=== PATIENT | female | born 1965 | race African-American/Black ===

== ENCOUNTER 2017-01-28 12:46 | Emergency (ER) | payer SELFPAY ==
[~2017-01-28] VITALS: Ht 177.8 cm; Wt 110.3 kg
[~2017-01-28 12:46] MED LIST: LISI40TA PO
[2017-01-28 12:49] VITALS: BP 165/96
== END 2017-01-28 14:00 | disposition home or self-care (01) ==
LOC: ED 13:40
DX: K02.9 Dental caries, unspecified (principal); Z76.0 Encounter for issue of repeat prescription; I10 Essential (primary) hypertension
CPT/HCPCS: 99283

== ENCOUNTER 2018-07-19 09:13 | Emergency (ER) | payer OTHER ==
[~2018-07-19] VITALS: Ht 180.3 cm; Wt 111.0 kg
--- NOTE | 2018-07-19 09:43 | NUR ---
patient ambulated to room safely, has walked to and from bathroom to provide UA.
--- NOTE | 2018-07-19 09:48 | NUR ---
md Barreto at bedside for assessment, patient safe in [facility], call light in reach, UA sent to lab, blood draw by lab in progress
[2018-07-19 10:25] LABS: BASOPHILS # (AUTO) 0.03 x10^3/uL (0-0.1); BASOPHILS % (AUTO) 0 % (0-1); EOSINOPHILS # (AUTO) 0.09 x10^3/uL (0-0.4); EOSINOPHILS % (AUTO) 1 % (1-7); LYMPHOCYTES # (AUTO) 3.12 x10^3/uL (1-3.4); LYMPHOCYTES % (AUTO) 46 % (22-44); MD NO; MEAN CORPUSCULAR HEMOGLOBIN 29.3 pg (27.0-34.8); MEAN CORPUSCULAR VOLUME 88.7 fL (80-100); MEAN PLATELET VOLUME 8.4 fL (7.4-10.4); MONOCYTES % (AUTO) 7 % (2-9); NEUTROPHILS # (AUTO) 3.13 x10^3/uL (1.8-6.8); NEUTROPHILS % (AUTO) 46 % (42-75); PLATELET COUNT 248 x10^3/uL (130-400); RED BLOOD COUNT 4.78 x10^6/uL (3.82-5.3); RED CELL DISTRIBUTION WIDTH 14.8 % (9.6-15.2)
[2018-07-19 10:33] LABS: ALBUMIN 3.9 g/dL (3.4-5.0); ANION GAP 8 mmol/L (5-15); CALCIUM 8.9 mg/dL (8.5-10.1); CHLORIDE 105 mmol/L (98-107)
[2018-07-19 10:37] LABS: ALANINE AMINOTRANSFERASE 83 U/L (12-78); ALKALINE PHOSPHATASE 84 U/L (45-117); BILIRUBIN,TOTAL 0.3 mg/dL (0.2-1.0); CREATININE 0.81 mg/dL (0.55-1.02); TOTAL PROTEIN 7.6 g/dL (6.4-8.2)
[2018-07-19] MEDS ORDERED: LISINOPRIL 20 MG TABLET ONE (10:51)
[2018-07-19 10:56] VITALS: BP 187/108
--- NOTE | 2018-07-19 10:58 | NUR ---
patient prepared for discharge, medicated per SEP, no pain, all questions answered, ambulatory to discharge desk now.
[2018-07-19] MEDS ORDERED: LISINOPRIL 20 MG TABLET PO ONE (11:00)
== END 2018-07-19 10:59 | disposition home or self-care (01) ==
LOC: ED 10:53
DX: I10 Essential (primary) hypertension (principal); E11.65 Type 2 diabetes mellitus with hyperglycemia; F17.200 Nicotine dependence, unspecified, uncomplicated
CPT/HCPCS: 80053; 82962; 85025; 99283

== ENCOUNTER 2019-11-24 21:32 | Inpatient (IN) | payer OTHER ==
[~2019-11-24] VITALS: Ht 177.8 cm; Wt 101.6 kg
[~2019-11-24 21:32] MED LIST changes: +ACET650S21 PO; +DOCU-131 PO; +FERR325T18 PO; +GLIP10TA13 PO; +IBUP-1222 PO; +METF500T17 PO; +NICO-485 TD; +OXYC5CAP2 PO
[2019-11-24] MEDS ORDERED: MORPHINE SULFATE 4 MG/ML, 1ML ONE ×2 (21:39→23:04)
[2019-11-24] MEDS: MORPHINE SULFATE 4 MG/ML, 1ML IVPush PRN ×2 (21:54→23:09)
[2019-11-24 21:58] LABS: MEAN CORPUSCULAR HEMOGLOBIN 27.8 pg (27.0-34.8); MEAN CORPUSCULAR HGB CONC 32.4 g/dL (32.4-35.8); MEAN CORPUSCULAR VOLUME 85.7 fL (80-100); MEAN PLATELET VOLUME 7.4 fL (7.4-10.4); PLATELET COUNT 496 x10^3/uL (130-400); RED BLOOD COUNT 3.66 x10^6/uL (3.82-5.3); RED CELL DISTRIBUTION WIDTH 15.4 % (9.6-15.2)
[2019-11-24] MEDS ORDERED: SODIUM CHLORIDE 0.9% 1,000ML IVBOLUS ONE ×2 (22:00→23:00)
[2019-11-24] MEDS ORDERED: ONDANSETRON 2MG/ML, 2ML IVPush ONE (22:00)
[2019-11-24 22:10] LABS: ALANINE AMINOTRANSFERASE 68 U/L (12-78); ALBUMIN 2.4 g/dL (3.4-5.0); ANION GAP 13 mmol/L (5-15); CALCIUM 8.8 mg/dL (8.5-10.1); CHLORIDE 92 mmol/L (98-107); CREATININE 1.33 mg/dL (0.55-1.02)
[2019-11-24 22:12] LABS: ALKALINE PHOSPHATASE 129 U/L (45-117); TOTAL PROTEIN 7.8 g/dL (6.4-8.2)
--- NOTE | 2019-11-24 22:17 | NUR ---
THIS IS A 54Y F BIB EMS FROM HOME AFTER SUDDEN ONSET OF SEVERE ABD PAIN AND VB FOLLOWING A HYSTERECTOMY 11/15/19. PT STS SHE HAS BEEN HAVING DIFFICULTY MANAGING HER PAIN RECENTLY. UPON ARRIVAL TO ER PT BLEEDING FROM SURGICAL INCISION IN LOWER ABD AND VAGINA WITH FOUL ODOR. PT CONNECTED TO MONITORING ERP AT BEDSIDE FOR ASSESSMENT
--- NOTE | 2019-11-24 22:17 | NUR ---
PT TO CT
--- NOTE | 2019-11-24 22:18 | NUR ---
PT CLEANED AND LINENS CHANGED. PT TOLERATED WELL
--- NOTE | 2019-11-24 22:31 | NUR ---
PT BACK TO ROOM FROM CT
[2019-11-24 22:40] LABS: BASOPHILS # (AUTO) 0.04 x10^3/uL (0-0.1); BASOPHILS % (AUTO) 0 % (0-1); EOSINOPHILS # (AUTO) 0.06 x10^3/uL (0-0.4); EOSINOPHILS % (AUTO) 0 % (1-7); LYMPHOCYTES # (AUTO) 0.81 x10^3/uL (1-3.4); LYMPHOCYTES % (AUTO) 5 % (22-44); MD SCAN; MONOCYTES # (AUTO) 0.82 x10^3/uL (0.2-0.8); MONOCYTES % (AUTO) 5 % (2-9); NEUTROPHILS # (AUTO) 15.77 x10^3/uL (1.8-6.8); NEUTROPHILS % (AUTO) 90 % (42-75)
[2019-11-24] MEDS ORDERED: POTASSIUM CHLORIDE 40 MEQ in SODIUM CHLORIDE 0.9% 500 ML IV ONE (23:00)
--- NOTE | 2019-11-24 23:09 | NUR ---
PT REQ PAIN MEDICATION, PT MEDICATED PER MAR PT STS SHE DOESN'T WANT THE ZOFRAN SHE DOES NOT FEEL SICK TO HER STOMACH AND WILL LET RN KNOW IF SHE CHANGES HER MIND
--- NOTE | 2019-11-24 23:21 | NUR ---
IDA DEL REAL SENT TO PHARMACY, LAB AT [facility] FOR CULTURES. FLUIDS INFUSING WITHOUT DIFFICULTY.
[2019-11-24] MEDS ORDERED: ERTAPENEM 1 GM in SODIUM CHLORIDE 0.9% 50 ML IV ONE (23:30)
[2019-11-24] MEDS ORDERED: OMNIPAQUE 350 MG/ML, 150 ML BOTTLE ONE (23:33)
--- NOTE | 2019-11-24 23:40 | NUR ---
IV ABX STARTED CULTURES DRAWN PRIOR TO START
--- NOTE | 2019-11-24 23:44 | NUR ---
REPORT TO RENETTA BREWER, PT READY FOR TRANSFER TO FLOOR [id number]
[2019-11-25] MEDS ORDERED: IBUPROFEN 200 MG TABLET PO PRN (01:30)
[2019-11-25 01:59] VITALS: BP 103/65
[2019-11-25 02:00] VITALS: BP 119/65
[2019-11-25] MEDS ORDERED: ACETAMINOPHEN 325 MG TABLET PO PRN (02:00)
[2019-11-25] MEDS: CEFAZOLIN PMX 2GM/50ML 50 ML IVPB SCH ×4 (03:51→22:43)
[2019-11-25 06:03] LABS: MEAN CORPUSCULAR HGB CONC 32.7 g/dL (32.4-35.8); MEAN CORPUSCULAR VOLUME 85.5 fL (80-100); MEAN PLATELET VOLUME 7.7 fL (7.4-10.4); PLATELET COUNT 494 x10^3/uL (130-400); RED BLOOD COUNT 3.57 x10^6/uL (3.82-5.3); RED CELL DISTRIBUTION WIDTH 15.1 % (9.6-15.2)
[2019-11-25 06:13] LABS: CHLORIDE 101 mmol/L (98-107)
[2019-11-25 06:18] LABS: ALANINE AMINOTRANSFERASE 59 U/L (12-78); ALBUMIN 2.3 g/dL (3.4-5.0); ALKALINE PHOSPHATASE 123 U/L (45-117); ANION GAP 9 mmol/L (5-15); BILIRUBIN,TOTAL 0.7 mg/dL (0.2-1.0); CALCIUM 8.8 mg/dL (8.5-10.1); CREATININE 0.86 mg/dL (0.55-1.02)
[2019-11-25 06:43] LABS: MD YES
[2019-11-25 06:47] LABS: BAND#(MANUAL) 2.53 x10^3/uL; BANDS%(MANUAL) 16 % (0-7); LYMPH#(MANUAL) 2.69 x10^3/uL (1-3.4); LYMPHS% (MANUAL) 17 % (22-44); MONOS#(MANUAL) 0.95 x10^3/uL (0.3-2.7); MONOS% (MANUAL) 6 % (2-9); SEG#(MANUAL) 9.64 x10^3/uL (1.8-6.8); SEGS% (MANUAL) 61 % (42-75)
[2019-11-25 06:48] LABS: <PLATELET ESTIMATE> INCREASED; <PLT MORPHOLOGY> NORMAL PLT MORPH; ANISOCYTOSIS 1+; POLYCHROMASIA 1+
[2019-11-25 08:18] VITALS: BP 119/72
[2019-11-25] MEDS: FERROUS SULFATE 325 MG TABLET PO SCH ×2 (08:28→20:45)
[2019-11-25] MEDS: LISINOPRIL 40 MG TABLET PO SCH (08:28)
[2019-11-25] MEDS: DOCUSATE 100 MG CAPSULE PO SCH ×2 (08:28→20:45)
[2019-11-25] MEDS: INSULIN LISPRO 100 UNITS/ML, PEN SQ-INSULIN SCH ×4 (08:49→20:51)
[2019-11-25] MEDS ORDERED: metFORMIN 500 MG TABLET PO SCH (09:00)
[2019-11-25 15:00] VITALS: BP 116/82
[2019-11-25] MEDS: OXYcodone IR 5MG TABLET PO PRN ×2 (16:10→20:50)
[2019-11-25 19:27] VITALS: BP 122/66
[2019-11-26] MEDS: OXYcodone IR 5MG TABLET PO PRN ×4 (00:55→20:34)
[2019-11-26 03:16] VITALS: BP 119/74
[2019-11-26] MEDS: CEFAZOLIN PMX 2GM/50ML 50 ML IVPB SCH ×2 (04:22→09:07)
[2019-11-26 05:07] LABS: MEAN CORPUSCULAR HEMOGLOBIN 28.1 pg (27.0-34.8); MEAN CORPUSCULAR HGB CONC 32.6 g/dL (32.4-35.8); MEAN CORPUSCULAR VOLUME 86.3 fL (80-100); MEAN PLATELET VOLUME 7.4 fL (7.4-10.4); PLATELET COUNT 508 x10^3/uL (130-400); RED BLOOD COUNT 3.39 x10^6/uL (3.82-5.3); RED CELL DISTRIBUTION WIDTH 15.2 % (9.6-15.2)
[2019-11-26 05:09] LABS: ALBUMIN 2.1 g/dL (3.4-5.0); ANION GAP 9 mmol/L (5-15); CALCIUM 9.1 mg/dL (8.5-10.1); CHLORIDE 96 mmol/L (98-107)
[2019-11-26 05:14] LABS: ALANINE AMINOTRANSFERASE 53 U/L (12-78); ALKALINE PHOSPHATASE 113 U/L (45-117); BILIRUBIN,TOTAL 0.7 mg/dL (0.2-1.0); TOTAL PROTEIN 7.7 g/dL (6.4-8.2)
[2019-11-26 05:52] LABS: MD YES
[2019-11-26 05:54] LABS: ANISOCYTOSIS 1+; BAND#(MANUAL) 0.44 x10^3/uL; BANDS%(MANUAL) 4 % (0-7); LYMPH#(MANUAL) 1.89 x10^3/uL (1-3.4); LYMPHS% (MANUAL) 17 % (22-44); MONOS#(MANUAL) 0.67 x10^3/uL (0.3-2.7); MONOS% (MANUAL) 6 % (2-9); SEGS% (MANUAL) 73 % (42-75)
[2019-11-26 05:55] LABS: <PLATELET ESTIMATE> INCREASED; <PLT MORPHOLOGY> NORMAL PLT MORPH; POLYCHROMASIA 1+
[2019-11-26 06:43] VITALS: BP 110/74
[2019-11-26] MEDS: INSULIN LISPRO 100 UNITS/ML, PEN SQ-INSULIN SCH ×4 (07:00→20:36)
[2019-11-26] MEDS: DOCUSATE 100 MG CAPSULE PO SCH ×2 (08:54→20:34)
[2019-11-26] MEDS: FERROUS SULFATE 325 MG TABLET PO SCH ×2 (08:55→20:34)
[2019-11-26] MEDS: LISINOPRIL 40 MG TABLET PO SCH (09:07)
[2019-11-26] MEDS ORDERED: CHLORHEXIDINE 15 ML UDC MM STA (11:06)
[2019-11-26] MEDS ORDERED: PROMETHAZINE 25 MG/ML, 1ML IVPush PRN (11:30)
[2019-11-26] MEDS ORDERED: FENTANYL PF 250 MCG/5ML ONE ×2 (12:02→12:13)
[2019-11-26] MEDS ORDERED: PROPOFOL 10 MG/ML, 20ML ONE ×4 (12:02→13:06)
[2019-11-26] MEDS ORDERED: CEFAZOLIN 1,000 MG ONE ×3 (12:02→12:12)
[2019-11-26] MEDS ORDERED: SUCCINYLCHOLINE 20 MG/ML, 10ML ONE (13:06)
[2019-11-26] MEDS ORDERED: ONDANSETRON 2MG/ML, 2ML ONE ×2 (13:06→13:13)
[2019-11-26] MEDS ORDERED: ROCURONIUM 10MG/ML,5ML ONE (13:08)
[2019-11-26] MEDS ORDERED: SUGAMMADEX 200 MG/2 ML IVPush ONE (13:13)
[2019-11-26] MEDS ORDERED: FENTANYL PF 100 MCG/2ML ONE ×2 (13:52→14:26)
[2019-11-26] MEDS: FENTANYL PF 100 MCG/2ML IV PRN ×4 (13:56→14:39)
[2019-11-26] MEDS ORDERED: KETOROLAC 30 MG/1 ML ONE (14:05)
[2019-11-26] MEDS ORDERED: OXYcodone 5 MG/5 ML ORAL.SOL UDC ONE ×2 (14:14→15:47)
[2019-11-26] MEDS: OXYcodone 5 MG/5 ML ORAL.SOL UDC PO PRN ×2 (14:15→15:57)
[2019-11-26] MEDS ORDERED: KETOROLAC 30 MG/1 ML IVPush PRN (14:30)
[2019-11-26] MEDS ORDERED: HYDROmorphone 1 MG/ML, 1ML INJ ONE (15:47)
[2019-11-26] MEDS: HYDROmorphone 1 MG/ML, 1ML INJ IVPush PRN ×2 (15:57→16:33)
[2019-11-26] MEDS ORDERED: ELECTROLYTE REPLACEMENT PROTOCOL CRITICAL CARE ONLY MC PRN (17:30)
[2019-11-26] MEDS ORDERED: OXYcodone IR 5MG TABLET PO PRN (18:30)
[2019-11-26] MEDS: IBUPROFEN 600 MG TABLET PO SCH (18:45)
[2019-11-26] MEDS: ACETAMINOPHEN 325 MG TABLET PO SCH (18:45)
[2019-11-26 20:22] VITALS: BP 100/55
[2019-11-26] MEDS: ERTAPENEM 1 GM in SODIUM CHLORIDE 0.9% 50 ML IV SCH (20:30)
[2019-11-26] MEDS: LINEZOLID PMX 600MG/300ML 300 ML IV SCH (21:45)
[2019-11-27] MEDS: ACETAMINOPHEN 325 MG TABLET PO SCH ×4 (00:03→18:35)
[2019-11-27] MEDS: OXYcodone IR 5MG TABLET PO PRN ×6 (00:03→23:15)
[2019-11-27] MEDS: NICOTINE 7 MG/24 HR PATCH.TD24 TD SCH (00:04)
[2019-11-27] MEDS: IBUPROFEN 600 MG TABLET PO SCH ×4 (00:05→18:35)
[2019-11-27] MEDS: ENOXAPARIN 40 MG/0.4 ML SQ SCH (00:05)
[2019-11-27 02:38] VITALS: BP 101/56
[2019-11-27 05:41] LABS: BASOPHILS # (AUTO) 0.03 x10^3/uL (0-0.1); BASOPHILS % (AUTO) 0 % (0-1); EOSINOPHILS # (AUTO) 0.15 x10^3/uL (0-0.4); EOSINOPHILS % (AUTO) 2 % (1-7); LYMPHOCYTES # (AUTO) 2.11 x10^3/uL (1-3.4); LYMPHOCYTES % (AUTO) 22 % (22-44); MD NO; MEAN CORPUSCULAR HEMOGLOBIN 27.4 pg (27.0-34.8); MEAN CORPUSCULAR HGB CONC 31.7 g/dL (32.4-35.8); MEAN CORPUSCULAR VOLUME 86.3 fL (80-100); MEAN PLATELET VOLUME 7.3 fL (7.4-10.4); MONOCYTES # (AUTO) 0.93 x10^3/uL (0.2-0.8); MONOCYTES % (AUTO) 10 % (2-9); NEUTROPHILS # (AUTO) 6.25 x10^3/uL (1.8-6.8); NEUTROPHILS % (AUTO) 66 % (42-75); PLATELET COUNT 500 x10^3/uL (130-400); RED BLOOD COUNT 3.11 x10^6/uL (3.82-5.3); RED CELL DISTRIBUTION WIDTH 15.7 % (9.6-15.2)
[2019-11-27 05:44] LABS: ALANINE AMINOTRANSFERASE 35 U/L (12-78); ALBUMIN 1.9 g/dL (3.4-5.0); ANION GAP 5 mmol/L (5-15); CALCIUM 8.4 mg/dL (8.5-10.1); CHLORIDE 99 mmol/L (98-107); CREATININE 0.69 mg/dL (0.55-1.02)
[2019-11-27 05:46] LABS: ALKALINE PHOSPHATASE 91 U/L (45-117); BILIRUBIN,TOTAL 0.6 mg/dL (0.2-1.0); TOTAL PROTEIN 6.6 g/dL (6.4-8.2)
[2019-11-27] MEDS: INSULIN LISPRO 100 UNITS/ML, PEN SQ-INSULIN SCH ×4 (07:00→20:51)
[2019-11-27] MEDS ORDERED: POTASSIUM CHLORIDE 40 MEQ in SODIUM CHLORIDE 0.9% 500 ML IV ONE (08:30)
[2019-11-27] MEDS ORDERED: ENOXAPARIN 40 MG/0.4 ML SQ ONE (09:00)
[2019-11-27 09:05] VITALS: BP 122/68
[2019-11-27] MEDS: FERROUS SULFATE 325 MG TABLET PO SCH ×2 (10:36→20:38)
[2019-11-27] MEDS: LISINOPRIL 40 MG TABLET PO SCH (10:36)
[2019-11-27] MEDS: DOCUSATE 100 MG CAPSULE PO SCH ×2 (10:36→20:38)
[2019-11-27] MEDS: LINEZOLID PMX 600MG/300ML 300 ML IV SCH (13:21)
[2019-11-27 14:18] VITALS: BP 148/91
[2019-11-27 20:21] VITALS: BP 121/74
[2019-11-27] MEDS: ERTAPENEM 1 GM in SODIUM CHLORIDE 0.9% 50 ML IV SCH (20:38)
[2019-11-27] MEDS: SIMETHICONE 125 MG CHEW TAB PO PRN (20:39)
[2019-11-28] MEDS: ACETAMINOPHEN 325 MG TABLET PO SCH ×4 (00:23→17:10)
[2019-11-28] MEDS: IBUPROFEN 600 MG TABLET PO SCH ×4 (00:23→17:10)
[2019-11-28] MEDS: LINEZOLID PMX 600MG/300ML 300 ML IV SCH ×3 (00:23→22:50)
[2019-11-28] MEDS: NICOTINE 7 MG/24 HR PATCH.TD24 TD SCH ×2 (00:30→21:22)
[2019-11-28] MEDS: ENOXAPARIN 40 MG/0.4 ML SQ SCH (00:30)
[2019-11-28] MEDS: SIMETHICONE 125 MG CHEW TAB PO PRN ×3 (00:31→22:50)
[2019-11-28 04:05] VITALS: BP 135/71
[2019-11-28] MEDS: OXYcodone IR 5MG TABLET PO PRN ×3 (05:32→21:23)
[2019-11-28 06:07] LABS: ANION GAP 2 mmol/L (5-15); CALCIUM 8.7 mg/dL (8.5-10.1); CHLORIDE 101 mmol/L (98-107)
[2019-11-28 06:11] LABS: ALANINE AMINOTRANSFERASE 28 U/L (12-78); ALKALINE PHOSPHATASE 90 U/L (45-117); BILIRUBIN,TOTAL 0.5 mg/dL (0.2-1.0); CREATININE 0.57 mg/dL (0.55-1.02); TOTAL PROTEIN 6.9 g/dL (6.4-8.2)
[2019-11-28 06:17] LABS: MEAN CORPUSCULAR HEMOGLOBIN 27.6 pg (27.0-34.8); MEAN CORPUSCULAR HGB CONC 32.3 g/dL (32.4-35.8); MEAN CORPUSCULAR VOLUME 85.5 fL (80-100); MEAN PLATELET VOLUME 7.4 fL (7.4-10.4); PLATELET COUNT 550 x10^3/uL (130-400); RED BLOOD COUNT 3.24 x10^6/uL (3.82-5.3); RED CELL DISTRIBUTION WIDTH 15.6 % (9.6-15.2)
[2019-11-28 06:54] LABS: MD YES
[2019-11-28 06:56] LABS: BASOS#(MANUAL) 0.08 x10^3/uL (0-0.1); BASOS% (MANUAL) 1 % (0-1); EOS#(MANUAL) 0.08 x10^3/uL (0.0-0.4); EOS% (MANUAL) 1 % (1-7); LYMPHS% (MANUAL) 30 % (22-44); METAMYELOCYTES# (MANUAL) 0.08 x10^3/uL (0-0); METAMYELOCYTES% (MANUAL) 1 % (0-1); MONOS#(MANUAL) 0.56 x10^3/uL (0.3-2.7); MONOS% (MANUAL) 7 % (2-9); SEGS% (MANUAL) 60 % (42-75)
[2019-11-28 06:57] LABS: <PLATELET ESTIMATE> INCREASED; <PLT MORPHOLOGY> NORMAL PLT MORPH; ANISOCYTOSIS 1+; HYPOCHROMIA 1+; POLYCHROMASIA 1+
[2019-11-28] MEDS: INSULIN LISPRO 100 UNITS/ML, PEN SQ-INSULIN SCH ×4 (07:00→21:00)
[2019-11-28 08:51] VITALS: BP 156/91
[2019-11-28] MEDS: DOCUSATE 100 MG CAPSULE PO SCH ×2 (10:18→21:23)
[2019-11-28] MEDS: FERROUS SULFATE 325 MG TABLET PO SCH ×2 (10:18→21:22)
[2019-11-28] MEDS: LISINOPRIL 40 MG TABLET PO SCH (10:18)
[2019-11-28] MEDS: OXYcodone/APAP 5/325MG TABLET PO PRN ×2 (10:19→10:31)
[2019-11-28 13:22] VITALS: BP 134/76
[2019-11-28] MEDS ORDERED: POTASSIUM CHLORIDE 40 MEQ in SODIUM CHLORIDE 0.9% 500 ML IV ONE (20:30)
[2019-11-28 21:00] VITALS: BP 149/90
[2019-11-28] MEDS: ERTAPENEM 1 GM in SODIUM CHLORIDE 0.9% 50 ML IV SCH (21:22)
[2019-11-29] MEDS: ENOXAPARIN 40 MG/0.4 ML SQ SCH
[2019-11-29] MEDS: IBUPROFEN 600 MG TABLET PO SCH ×4 (00:27→18:30)
[2019-11-29] MEDS: ACETAMINOPHEN 325 MG TABLET PO SCH ×4 (00:36→18:44)
[2019-11-29 01:14] VITALS: BP 143/81
[2019-11-29] MEDS: OXYcodone IR 5MG TABLET PO PRN ×3 (03:17→21:08)
[2019-11-29 05:15] LABS: BASOPHILS # (AUTO) 0.05 x10^3/uL (0-0.1); BASOPHILS % (AUTO) 1 % (0-1); EOSINOPHILS # (AUTO) 0.11 x10^3/uL (0-0.4); EOSINOPHILS % (AUTO) 1 % (1-7); LYMPHOCYTES # (AUTO) 2.28 x10^3/uL (1-3.4); LYMPHOCYTES % (AUTO) 28 % (22-44); MD NO; MEAN CORPUSCULAR HEMOGLOBIN 27.7 pg (27.0-34.8); MEAN CORPUSCULAR HGB CONC 32.4 g/dL (32.4-35.8); MEAN CORPUSCULAR VOLUME 85.6 fL (80-100); MEAN PLATELET VOLUME 7.5 fL (7.4-10.4); MONOCYTES # (AUTO) 0.35 x10^3/uL (0.2-0.8); MONOCYTES % (AUTO) 4 % (2-9); NEUTROPHILS # (AUTO) 5.28 x10^3/uL (1.8-6.8); NEUTROPHILS % (AUTO) 65 % (42-75); PLATELET COUNT 574 x10^3/uL (130-400); RED BLOOD COUNT 3.25 x10^6/uL (3.82-5.3); RED CELL DISTRIBUTION WIDTH 15.6 % (9.6-15.2)
[2019-11-29 05:20] LABS: CALCIUM 8.3 mg/dL (8.5-10.1); CHLORIDE 103 mmol/L (98-107)
[2019-11-29 05:26] LABS: ALANINE AMINOTRANSFERASE 26 U/L (12-78); ALKALINE PHOSPHATASE 102 U/L (45-117); ANION GAP 6 mmol/L (5-15); BILIRUBIN,TOTAL 0.5 mg/dL (0.2-1.0); CREATININE 0.64 mg/dL (0.55-1.02); TOTAL PROTEIN 6.8 g/dL (6.4-8.2)
[2019-11-29] MEDS: INSULIN LISPRO 100 UNITS/ML, PEN SQ-INSULIN SCH ×4 (07:00→21:00)
[2019-11-29] MEDS: DOCUSATE 100 MG CAPSULE PO SCH ×2 (08:16→21:08)
[2019-11-29] MEDS: SIMETHICONE 125 MG CHEW TAB PO PRN ×2 (08:16→21:08)
[2019-11-29] MEDS: FERROUS SULFATE 325 MG TABLET PO SCH ×2 (08:16→21:08)
[2019-11-29] MEDS: LISINOPRIL 40 MG TABLET PO SCH (08:16)
[2019-11-29 08:52] VITALS: BP 140/76
[2019-11-29] MEDS: LINEZOLID PMX 600MG/300ML 300 ML IV SCH ×2 (10:19→21:23)
[2019-11-29] MEDS ORDERED: FENTANYL PF 100 MCG/2ML ONE ×3 (12:43→13:31)
[2019-11-29] MEDS ORDERED: HYDROmorphone 1 MG/ML, 1ML INJ IVPush PRN ×2 (13:00→13:30)
[2019-11-29] MEDS ORDERED: HALOPERIDOL 5 MG/ML IV PRN (13:00)
[2019-11-29] MEDS ORDERED: LABETALOL 5MG/ML, 20ML IV PRN ×2 (13:00→13:30)
[2019-11-29] MEDS ORDERED: PROMETHAZINE 25 MG/ML, 1ML IVPush PRN ×2 (13:00→13:30)
[2019-11-29] MEDS ORDERED: ALBUTEROL/IPRATROPIUM 2.5MG/0.5MG, 3 ML NPPB PRN (13:00)
[2019-11-29] MEDS ORDERED: MEPERIDINE/PF 25MG/0.5ML IVPush PRN ×2 (13:00→13:30)
[2019-11-29] MEDS ORDERED: hydrALAzine 20 MG/ML, 1ML IV PRN ×2 (13:00→13:30)
[2019-11-29] MEDS ORDERED: FENTANYL PF 100 MCG/2ML IV PRN ×2 (13:00→13:30)
[2019-11-29] MEDS ORDERED: DEXAMETHASONE 4 MG/ML, 1ML ONE (13:03)
[2019-11-29] MEDS ORDERED: SUCCINYLCHOLINE 20 MG/ML, 10ML ONE (13:13)
[2019-11-29] MEDS ORDERED: ONDANSETRON 2MG/ML, 2ML ONE (13:13)
[2019-11-29] MEDS ORDERED: PROPOFOL 10 MG/ML, 20ML ONE (13:13)
[2019-11-29] MEDS ORDERED: hydrALAzine 20 MG/ML, 1ML ONE (13:16)
[2019-11-29] MEDS ORDERED: OXYcodone 5 MG/5 ML ORAL.SOL UDC PO PRN (13:30)
[2019-11-29] MEDS ORDERED: ONDANSETRON 2MG/ML, 2ML IVPush PRN (13:30)
[2019-11-29] MEDS ORDERED: ACETAMINOPHEN 325 MG TABLET PO PRN (13:30)
[2019-11-29] MEDS ORDERED: HYDROmorphone 1 MG/ML, 1ML INJ ONE (13:31)
[2019-11-29 19:44] VITALS: BP 119/63
[2019-11-29] MEDS: NICOTINE 7 MG/24 HR PATCH.TD24 TD SCH (21:32)
[2019-11-30] MEDS: ACETAMINOPHEN 325 MG TABLET PO SCH ×4 (00:32→18:05)
[2019-11-30] MEDS: IBUPROFEN 600 MG TABLET PO SCH ×4 (00:32→18:05)
[2019-11-30] MEDS: OXYcodone IR 5MG TABLET PO PRN ×5 (00:32→22:07)
[2019-11-30] MEDS: ENOXAPARIN 40 MG/0.4 ML SQ SCH (00:45)
[2019-11-30 00:56] VITALS: BP 112/61
[2019-11-30] MEDS: INSULIN LISPRO 100 UNITS/ML, PEN SQ-INSULIN SCH ×4 (07:00→21:40)
[2019-11-30 07:45] VITALS: BP 135/72
[2019-11-30] MEDS: DOCUSATE 100 MG CAPSULE PO SCH ×2 (10:14→21:34)
[2019-11-30] MEDS: FERROUS SULFATE 325 MG TABLET PO SCH ×2 (10:14→21:34)
[2019-11-30] MEDS: LISINOPRIL 40 MG TABLET PO SCH (10:15)
[2019-11-30] MEDS: SIMETHICONE 125 MG CHEW TAB PO PRN ×2 (10:15→22:41)
[2019-11-30 12:07] VITALS: BP 158/96
[2019-11-30] MEDS: LINEZOLID 600 MG TABLET PO SCH ×2 (13:27→21:34)
[2019-11-30 19:10] VITALS: BP 142/90
[2019-11-30] MEDS: NICOTINE 7 MG/24 HR PATCH.TD24 TD SCH (21:35)
[2019-12-01] MEDS: ENOXAPARIN 40 MG/0.4 ML SQ SCH (00:35)
[2019-12-01] MEDS: ACETAMINOPHEN 325 MG TABLET PO SCH ×4 (00:35→18:00)
[2019-12-01] MEDS: IBUPROFEN 600 MG TABLET PO SCH ×4 (00:35→18:00)
[2019-12-01] MEDS: OXYcodone IR 5MG TABLET PO PRN ×6 (02:10→20:42)
[2019-12-01 02:11] VITALS: BP 152/85
[2019-12-01 06:41] VITALS: BP_SYST 173; BP_SYST 177; BP_DIAS 106; BP_DIAS 108
[2019-12-01 06:55] LABS: MEAN CORPUSCULAR HEMOGLOBIN 27.6 pg (27.0-34.8); MEAN CORPUSCULAR HGB CONC 31.8 g/dL (32.4-35.8); MEAN CORPUSCULAR VOLUME 86.9 fL (80-100); MEAN PLATELET VOLUME 7.1 fL (7.4-10.4); PLATELET COUNT 570 x10^3/uL (130-400); RED BLOOD COUNT 3.41 x10^6/uL (3.82-5.3); RED CELL DISTRIBUTION WIDTH 15.7 % (9.6-15.2)
[2019-12-01] MEDS: INSULIN LISPRO 100 UNITS/ML, PEN SQ-INSULIN SCH ×4 (07:00→21:22)
[2019-12-01 07:19] LABS: BASOPHILS % (AUTO) 0 % (0-1); EOSINOPHILS # (AUTO) 0.11 x10^3/uL (0-0.4); EOSINOPHILS % (AUTO) 1 % (1-7); LYMPHOCYTES # (AUTO) 2.21 x10^3/uL (1-3.4); LYMPHOCYTES % (AUTO) 28 % (22-44); MD SCAN; MONOCYTES % (AUTO) 6 % (2-9); NEUTROPHILS # (AUTO) 5.16 x10^3/uL (1.8-6.8); NEUTROPHILS % (AUTO) 65 % (42-75)
[2019-12-01 08:19] LABS: ALANINE AMINOTRANSFERASE 28 U/L (12-78); ALBUMIN 2.3 g/dL (3.4-5.0); ANION GAP 6 mmol/L (5-15); CALCIUM 8.7 mg/dL (8.5-10.1); CHLORIDE 107 mmol/L (98-107)
[2019-12-01 08:22] LABS: ALKALINE PHOSPHATASE 96 U/L (45-117); BILIRUBIN,TOTAL 0.4 mg/dL (0.2-1.0); CREATININE 0.65 mg/dL (0.55-1.02); TOTAL PROTEIN 7.2 g/dL (6.4-8.2)
[2019-12-01 08:25] VITALS: BP 128/81
[2019-12-01] MEDS: DOCUSATE 100 MG CAPSULE PO SCH ×2 (08:34→20:42)
[2019-12-01] MEDS: LISINOPRIL 40 MG TABLET PO SCH (08:34)
[2019-12-01] MEDS: FERROUS SULFATE 325 MG TABLET PO SCH ×2 (08:34→20:42)
[2019-12-01] MEDS: LINEZOLID 600 MG TABLET PO SCH ×2 (08:34→20:42)
[2019-12-01 12:23] VITALS: BP 155/88
[2019-12-01 20:07] VITALS: BP 184/98
[2019-12-01] MEDS: SIMETHICONE 125 MG CHEW TAB PO PRN (20:42)
[2019-12-01] MEDS: NICOTINE 7 MG/24 HR PATCH.TD24 TD SCH (20:42)
[2019-12-02] MEDS: ENOXAPARIN 40 MG/0.4 ML SQ SCH ×2 (00:13→23:38)
[2019-12-02] MEDS: ACETAMINOPHEN 325 MG TABLET PO SCH ×5 (00:13→23:38)
[2019-12-02] MEDS: IBUPROFEN 600 MG TABLET PO SCH ×5 (00:13→23:38)
[2019-12-02 00:36] VITALS: BP 143/88
[2019-12-02] MEDS: OXYcodone IR 5MG TABLET PO PRN ×4 (01:59→16:41)
[2019-12-02] MEDS: INSULIN LISPRO 100 UNITS/ML, PEN SQ-INSULIN SCH ×4 (07:00→20:31)
[2019-12-02 07:58] VITALS: BP 151/90
[2019-12-02] MEDS: FERROUS SULFATE 325 MG TABLET PO SCH ×2 (08:28→20:37)
[2019-12-02] MEDS: LINEZOLID 600 MG TABLET PO SCH ×2 (08:28→20:37)
[2019-12-02] MEDS: LISINOPRIL 40 MG TABLET PO SCH (08:28)
[2019-12-02] MEDS: DOCUSATE 100 MG CAPSULE PO SCH ×2 (08:28→20:37)
[2019-12-02 15:40] VITALS: BP 139/86
[2019-12-02] MEDS: MAGNESIUM HYDROXIDE 8%, 30ML UDC PO PRN (18:31)
[2019-12-02 20:07] VITALS: BP 144/83
[2019-12-02] MEDS: NICOTINE 7 MG/24 HR PATCH.TD24 TD SCH (20:40)
[2019-12-02] MEDS: SODIUM CHLORIDE 0.9% 1,000 ML IV SCH (23:40)
[2019-12-03] MEDS: OXYcodone IR 5MG TABLET PO PRN ×4 (02:30→20:33)
[2019-12-03 02:34] VITALS: BP 140/92
[2019-12-03] MEDS: ACETAMINOPHEN 325 MG TABLET PO SCH ×3 (05:32→18:44)
[2019-12-03] MEDS: IBUPROFEN 600 MG TABLET PO SCH ×3 (05:32→18:44)
[2019-12-03 06:05] LABS: HCT (SEDRATE) 27.6 % (34.6-47.8)
[2019-12-03 06:08] LABS: BASOPHILS # (AUTO) 0.02 x10^3/uL (0-0.1); BASOPHILS % (AUTO) 0 % (0-1); EOSINOPHILS % (AUTO) 2 % (1-7); LYMPHOCYTES # (AUTO) 2.05 x10^3/uL (1-3.4); LYMPHOCYTES % (AUTO) 32 % (22-44); MD NO; MEAN CORPUSCULAR HEMOGLOBIN 27.4 pg (27.0-34.8); MEAN CORPUSCULAR HGB CONC 31.4 g/dL (32.4-35.8); MEAN CORPUSCULAR VOLUME 87.4 fL (80-100); MEAN PLATELET VOLUME 7.2 fL (7.4-10.4); MONOCYTES # (AUTO) 0.37 x10^3/uL (0.2-0.8); MONOCYTES % (AUTO) 6 % (2-9); NEUTROPHILS # (AUTO) 3.83 x10^3/uL (1.8-6.8); NEUTROPHILS % (AUTO) 60 % (42-75); PLATELET COUNT 549 x10^3/uL (130-400); RED BLOOD COUNT 3.25 x10^6/uL (3.82-5.3); RED CELL DISTRIBUTION WIDTH 16.1 % (9.6-15.2)
[2019-12-03 06:16] LABS: ALBUMIN 2.3 g/dL (3.4-5.0); ANION GAP 7 mmol/L (5-15); CALCIUM 8.4 mg/dL (8.5-10.1); CHLORIDE 108 mmol/L (98-107)
[2019-12-03 06:27] LABS: ALANINE AMINOTRANSFERASE 28 U/L (12-78); ALKALINE PHOSPHATASE 94 U/L (45-117); BILIRUBIN,TOTAL 0.7 mg/dL (0.2-1.0); CREATININE 0.64 mg/dL (0.55-1.02)
[2019-12-03] MEDS ORDERED: BUPIVACAINE/PF-EPI 0.25% 1:200K ONE (06:29)
[2019-12-03] MEDS ORDERED: FENTANYL PF 100 MCG/2ML ONE ×3 (06:40→08:04)
[2019-12-03] MEDS ORDERED: CHLORHEXIDINE 15 ML UDC MM STA (06:41)
[2019-12-03] MEDS ORDERED: PROMETHAZINE 25 MG/ML, 1ML IVPush PRN (07:00)
[2019-12-03] MEDS ORDERED: LABETALOL 5MG/ML, 20ML IV PRN (07:00)
[2019-12-03] MEDS ORDERED: OXYcodone 5 MG/5 ML ORAL.SOL UDC PO PRN (07:00)
[2019-12-03] MEDS: INSULIN LISPRO 100 UNITS/ML, PEN SQ-INSULIN SCH ×4 (07:00→20:54)
[2019-12-03] MEDS ORDERED: HYDROmorphone 1 MG/ML, 1ML INJ IVPush PRN (07:00)
[2019-12-03] MEDS ORDERED: HALOPERIDOL 5 MG/ML IV PRN (07:00)
[2019-12-03] MEDS ORDERED: hydrALAzine 20 MG/ML, 1ML IV PRN (07:00)
[2019-12-03] MEDS ORDERED: MEPERIDINE/PF 25MG/0.5ML IVPush PRN (07:00)
[2019-12-03] MEDS ORDERED: METOPROLOL 1 MG/ML, 5ML ONE (07:27)
[2019-12-03] MEDS ORDERED: GLYCOPYRROLATE 0.2MG/1ML, 5ML ONE (07:45)
[2019-12-03] MEDS ORDERED: ONDANSETRON 2MG/ML, 2ML ONE (07:45)
[2019-12-03] MEDS ORDERED: PROPOFOL 10 MG/ML, 20ML ONE (07:45)
[2019-12-03] MEDS ORDERED: SUCCINYLCHOLINE 20 MG/ML, 10ML ONE (07:45)
[2019-12-03] MEDS ORDERED: NEOSTIGMINE 1 MG/ML, 10ML ONE (07:45)
[2019-12-03] MEDS ORDERED: CEFAZOLIN 1,000 MG ONE (07:45)
[2019-12-03] MEDS ORDERED: DEXAMETHASONE 4 MG/ML, 1ML ONE (07:45)
[2019-12-03] MEDS ORDERED: ROCURONIUM 10MG/ML,5ML ONE (07:45)
[2019-12-03] MEDS: FENTANYL PF 100 MCG/2ML IV PRN ×2 (08:06→08:29)
[2019-12-03] MEDS ORDERED: HYDROcodone/APAP 7.5-325MG/15ML UDC ONE (08:17)
[2019-12-03] MEDS ORDERED: HYDROcodone/APAP 7.5-325MG/15ML UDC PO PRN (08:30)
[2019-12-03] MEDS: LISINOPRIL 40 MG TABLET PO SCH (08:33)
[2019-12-03 09:10] VITALS: BP 125/75
[2019-12-03] MEDS: AMLODIPINE 5 MG TABLET PO SCH ×2 (09:27→20:33)
[2019-12-03] MEDS: FERROUS SULFATE 325 MG TABLET PO SCH ×2 (10:20→20:32)
[2019-12-03] MEDS: LINEZOLID 600 MG TABLET PO SCH ×2 (10:20→20:32)
[2019-12-03] MEDS: DOCUSATE 100 MG CAPSULE PO SCH ×2 (10:21→20:33)
[2019-12-03] MEDS: SODIUM CHLORIDE 0.9% 1,000 ML IV SCH (10:29)
[2019-12-03 15:38] VITALS: BP 139/80
[2019-12-03 19:41] VITALS: BP 104/69
[2019-12-03] MEDS: NICOTINE 7 MG/24 HR PATCH.TD24 TD SCH (20:32)
[2019-12-04] MEDS: ENOXAPARIN 40 MG/0.4 ML SQ SCH (00:11)
[2019-12-04] MEDS: SODIUM CHLORIDE 0.9% 1,000 ML IV SCH ×3 (00:11→23:55)
[2019-12-04] MEDS: IBUPROFEN 600 MG TABLET PO SCH ×4 (00:11→17:57)
[2019-12-04] MEDS: OXYcodone IR 5MG TABLET PO PRN ×4 (00:11→16:35)
[2019-12-04] MEDS: ACETAMINOPHEN 325 MG TABLET PO SCH ×4 (00:11→17:57)
[2019-12-04 00:18] VITALS: BP 108/67
[2019-12-04] MEDS: SIMETHICONE 125 MG CHEW TAB PO PRN (00:25)
[2019-12-04] MEDS: MORPHINE SULFATE 4 MG/ML, 1ML IV PRN ×2 (06:35→17:02)
[2019-12-04] MEDS: INSULIN LISPRO 100 UNITS/ML, PEN SQ-INSULIN SCH ×4 (07:00→20:39)
[2019-12-04 08:16] VITALS: BP 150/81
[2019-12-04] MEDS: DOCUSATE 100 MG CAPSULE PO SCH ×2 (09:20→20:39)
[2019-12-04] MEDS: AMLODIPINE 5 MG TABLET PO SCH ×2 (09:20→20:39)
[2019-12-04] MEDS: LINEZOLID 600 MG TABLET PO SCH ×2 (09:20→20:39)
[2019-12-04] MEDS: FERROUS SULFATE 325 MG TABLET PO SCH ×2 (09:20→20:39)
[2019-12-04] MEDS: LISINOPRIL 40 MG TABLET PO SCH (09:20)
[2019-12-04] MEDS: LACTULOSE 20 GM/30 ML UDC PO SCH ×2 (12:56→20:39)
[2019-12-04 13:49] VITALS: BP_SYST 128; BP_SYST 129; BP_DIAS 80; BP_DIAS 87
[2019-12-04 19:23] VITALS: BP 145/81
[2019-12-04] MEDS: NICOTINE 7 MG/24 HR PATCH.TD24 TD SCH (20:39)
[2019-12-05 00:27] VITALS: BP 136/83
[2019-12-05] MEDS: ACETAMINOPHEN 325 MG TABLET PO SCH ×5 (00:31→23:13)
[2019-12-05] MEDS: IBUPROFEN 600 MG TABLET PO SCH ×5 (00:31→23:13)
[2019-12-05] MEDS: ENOXAPARIN 40 MG/0.4 ML SQ SCH ×2 (00:31→23:13)
[2019-12-05] MEDS: OXYcodone IR 5MG TABLET PO PRN ×7 (00:31→23:13)
[2019-12-05] MEDS: MORPHINE SULFATE 4 MG/ML, 1ML IV PRN ×3 (01:33→21:04)
[2019-12-05] MEDS: MAGNESIUM HYDROXIDE 8%, 30ML UDC PO PRN (06:39)
[2019-12-05 06:42] LABS: BASOPHILS # (AUTO) 0.04 x10^3/uL (0-0.1); BASOPHILS % (AUTO) 1 % (0-1); EOSINOPHILS % (AUTO) 2 % (1-7); LYMPHOCYTES # (AUTO) 2.72 x10^3/uL (1-3.4); LYMPHOCYTES % (AUTO) 40 % (22-44); MD NO; MEAN CORPUSCULAR HEMOGLOBIN 28.2 pg (27.0-34.8); MEAN CORPUSCULAR HGB CONC 32.1 g/dL (32.4-35.8); MEAN CORPUSCULAR VOLUME 87.7 fL (80-100); MEAN PLATELET VOLUME 6.4 fL (7.4-10.4); MONOCYTES # (AUTO) 0.48 x10^3/uL (0.2-0.8); MONOCYTES % (AUTO) 7 % (2-9); NEUTROPHILS # (AUTO) 3.45 x10^3/uL (1.8-6.8); NEUTROPHILS % (AUTO) 51 % (42-75); PLATELET COUNT 607 x10^3/uL (130-400); RED BLOOD COUNT 3.43 x10^6/uL (3.82-5.3)
[2019-12-05 06:54] LABS: ANION GAP 8 mmol/L (5-15); CALCIUM 8.8 mg/dL (8.5-10.1); CHLORIDE 108 mmol/L (98-107); CREATININE 0.71 mg/dL (0.55-1.02)
[2019-12-05] MEDS: INSULIN LISPRO 100 UNITS/ML, PEN SQ-INSULIN SCH ×4 (07:36→21:00)
[2019-12-05] MEDS: SODIUM CHLORIDE 0.9% 1,000 ML IV SCH ×3 (08:27→23:55)
[2019-12-05 08:36] VITALS: BP 128/71
[2019-12-05] MEDS: FERROUS SULFATE 325 MG TABLET PO SCH ×2 (08:38→21:04)
[2019-12-05] MEDS: LACTULOSE 20 GM/30 ML UDC PO SCH ×2 (08:38→21:00)
[2019-12-05] MEDS: DOCUSATE 100 MG CAPSULE PO SCH ×2 (08:38→21:04)
[2019-12-05] MEDS: LISINOPRIL 40 MG TABLET PO SCH (08:38)
[2019-12-05] MEDS: AMLODIPINE 5 MG TABLET PO SCH ×2 (08:38→21:04)
[2019-12-05] MEDS: LINEZOLID 600 MG TABLET PO SCH ×2 (08:38→21:04)
[2019-12-05 08:45] VITALS: BP 154/86
[2019-12-05 14:22] VITALS: BP 165/94
[2019-12-05 18:54] VITALS: BP 128/79
[2019-12-05] MEDS: NICOTINE 7 MG/24 HR PATCH.TD24 TD SCH (21:06)
[2019-12-06 03:00] VITALS: BP 175/100
[2019-12-06] MEDS: OXYcodone IR 5MG TABLET PO PRN ×5 (03:06→19:47)
[2019-12-06 04:06] VITALS: BP 147/91
[2019-12-06 06:13] LABS: ANION GAP 7 mmol/L (5-15); BASOPHILS # (AUTO) 0.02 x10^3/uL (0-0.1); BASOPHILS % (AUTO) 0 % (0-1); CALCIUM 8.5 mg/dL (8.5-10.1); CHLORIDE 108 mmol/L (98-107); EOSINOPHILS # (AUTO) 0.13 x10^3/uL (0-0.4); EOSINOPHILS % (AUTO) 2 % (1-7); LYMPHOCYTES # (AUTO) 1.85 x10^3/uL (1-3.4); LYMPHOCYTES % (AUTO) 35 % (22-44); MD NO; MEAN CORPUSCULAR HEMOGLOBIN 28.2 pg (27.0-34.8); MEAN CORPUSCULAR HGB CONC 32.2 g/dL (32.4-35.8); MEAN CORPUSCULAR VOLUME 87.8 fL (80-100); MEAN PLATELET VOLUME 7.1 fL (7.4-10.4); MONOCYTES # (AUTO) 0.45 x10^3/uL (0.2-0.8); MONOCYTES % (AUTO) 8 % (2-9); NEUTROPHILS % (AUTO) 54 % (42-75); PLATELET COUNT 480 x10^3/uL (130-400); RED BLOOD COUNT 3.07 x10^6/uL (3.82-5.3); RED CELL DISTRIBUTION WIDTH 17.5 % (9.6-15.2)
[2019-12-06 06:14] LABS: CREATININE 0.68 mg/dL (0.55-1.02)
[2019-12-06] MEDS: INSULIN LISPRO 100 UNITS/ML, PEN SQ-INSULIN SCH ×4 (06:32→22:30)
[2019-12-06] MEDS: IBUPROFEN 600 MG TABLET PO SCH ×4 (06:45→22:52)
[2019-12-06] MEDS: SIMETHICONE 125 MG CHEW TAB PO PRN (06:45)
[2019-12-06] MEDS: ACETAMINOPHEN 325 MG TABLET PO SCH ×4 (06:46→22:52)
[2019-12-06 08:10] VITALS: BP 130/83
[2019-12-06] MEDS: SODIUM CHLORIDE 0.9% 1,000 ML IV SCH ×3 (08:14→23:55)
[2019-12-06] MEDS: LINEZOLID 600 MG TABLET PO SCH ×2 (08:14→19:47)
[2019-12-06] MEDS: AMLODIPINE 5 MG TABLET PO SCH ×2 (08:14→19:46)
[2019-12-06] MEDS: FERROUS SULFATE 325 MG TABLET PO SCH ×2 (08:14→19:47)
[2019-12-06] MEDS: DOCUSATE 100 MG CAPSULE PO SCH ×2 (08:14→19:47)
[2019-12-06] MEDS: LISINOPRIL 40 MG TABLET PO SCH (08:14)
[2019-12-06 14:24] VITALS: BP 157/84
[2019-12-06] MEDS: LACTULOSE 20 GM/30 ML UDC PO PRN (14:27)
[2019-12-06 18:36] VITALS: BP 156/89
[2019-12-06] MEDS: NICOTINE 7 MG/24 HR PATCH.TD24 TD SCH (22:52)
[2019-12-07] MEDS: ENOXAPARIN 40 MG/0.4 ML SQ SCH
[2019-12-07 00:52] VITALS: BP 132/86
[2019-12-07] MEDS: OXYcodone IR 5MG TABLET PO PRN ×4 (03:42→20:13)
[2019-12-07] MEDS: ACETAMINOPHEN 325 MG TABLET PO SCH ×3 (06:10→18:12)
[2019-12-07] MEDS: IBUPROFEN 600 MG TABLET PO SCH ×3 (06:10→18:12)
[2019-12-07 06:15] LABS: ANION GAP 7 mmol/L (5-15); CALCIUM 8.8 mg/dL (8.5-10.1); CHLORIDE 108 mmol/L (98-107); CREATININE 0.66 mg/dL (0.55-1.02)
[2019-12-07] MEDS: INSULIN LISPRO 100 UNITS/ML, PEN SQ-INSULIN SCH ×4 (06:20→20:15)
[2019-12-07 06:31] LABS: BASOPHILS # (AUTO) 0.01 x10^3/uL (0-0.1); BASOPHILS % (AUTO) 0 % (0-1); EOSINOPHILS # (AUTO) 0.08 x10^3/uL (0-0.4); EOSINOPHILS % (AUTO) 2 % (1-7); LYMPHOCYTES # (AUTO) 1.51 x10^3/uL (1-3.4); LYMPHOCYTES % (AUTO) 32 % (22-44); MD NO; MEAN CORPUSCULAR HEMOGLOBIN 28.4 pg (27.0-34.8); MEAN CORPUSCULAR HGB CONC 32.5 g/dL (32.4-35.8); MEAN CORPUSCULAR VOLUME 87.5 fL (80-100); MEAN PLATELET VOLUME 7.1 fL (7.4-10.4); MONOCYTES # (AUTO) 0.46 x10^3/uL (0.2-0.8); MONOCYTES % (AUTO) 10 % (2-9); NEUTROPHILS # (AUTO) 2.71 x10^3/uL (1.8-6.8); NEUTROPHILS % (AUTO) 57 % (42-75); PLATELET COUNT 519 x10^3/uL (130-400); RED BLOOD COUNT 3.32 x10^6/uL (3.82-5.3); RED CELL DISTRIBUTION WIDTH 17.6 % (9.6-15.2)
[2019-12-07] MEDS: DOCUSATE 100 MG CAPSULE PO SCH ×2 (08:06→20:10)
[2019-12-07] MEDS: AMLODIPINE 5 MG TABLET PO SCH ×2 (08:07→20:10)
[2019-12-07] MEDS: LISINOPRIL 40 MG TABLET PO SCH (08:07)
[2019-12-07] MEDS: FERROUS SULFATE 325 MG TABLET PO SCH ×2 (08:07→20:09)
[2019-12-07] MEDS: LINEZOLID 600 MG TABLET PO SCH ×2 (08:07→20:10)
[2019-12-07 08:09] VITALS: BP 146/92
[2019-12-07] MEDS: MORPHINE SULFATE 4 MG/ML, 1ML IV PRN (08:55)
[2019-12-07] MEDS: SODIUM CHLORIDE 0.9% 1,000 ML IV SCH (13:15)
[2019-12-07 13:55] VITALS: BP 139/80
[2019-12-07] MEDS: LACTULOSE 20 GM/30 ML UDC PO PRN (14:54)
[2019-12-07] MEDS: SIMETHICONE 125 MG CHEW TAB PO PRN (18:12)
[2019-12-07] MEDS: NICOTINE 7 MG/24 HR PATCH.TD24 TD SCH (20:11)
[2019-12-07 20:15] VITALS: BP 150/92
[2019-12-08] MEDS: ENOXAPARIN 40 MG/0.4 ML SQ SCH (00:38)
[2019-12-08] MEDS: OXYcodone IR 5MG TABLET PO PRN ×4 (00:38→21:03)
[2019-12-08] MEDS: IBUPROFEN 600 MG TABLET PO SCH ×4 (00:38→18:15)
[2019-12-08] MEDS: ACETAMINOPHEN 325 MG TABLET PO SCH ×4 (00:38→18:15)
[2019-12-08] MEDS: SODIUM CHLORIDE 0.9% 1,000 ML IV SCH ×2 (00:57→15:55)
[2019-12-08 01:15] VITALS: BP 134/87
[2019-12-08 05:23] LABS: BASOPHILS # (AUTO) 0.03 x10^3/uL (0-0.1); BASOPHILS % (AUTO) 1 % (0-1); EOSINOPHILS # (AUTO) 0.08 x10^3/uL (0-0.4); EOSINOPHILS % (AUTO) 2 % (1-7); LYMPHOCYTES # (AUTO) 2.49 x10^3/uL (1-3.4); LYMPHOCYTES % (AUTO) 46 % (22-44); MD NO; MEAN CORPUSCULAR HEMOGLOBIN 28.5 pg (27.0-34.8); MEAN PLATELET VOLUME 6.7 fL (7.4-10.4); MONOCYTES # (AUTO) 0.55 x10^3/uL (0.2-0.8); MONOCYTES % (AUTO) 10 % (2-9); NEUTROPHILS # (AUTO) 2.21 x10^3/uL (1.8-6.8); NEUTROPHILS % (AUTO) 41 % (42-75); PLATELET COUNT 501 x10^3/uL (130-400); RED BLOOD COUNT 3.29 x10^6/uL (3.82-5.3); RED CELL DISTRIBUTION WIDTH 18.3 % (9.6-15.2)
[2019-12-08 05:29] LABS: ANION GAP 8 mmol/L (5-15); CALCIUM 8.8 mg/dL (8.5-10.1); CHLORIDE 108 mmol/L (98-107)
[2019-12-08 05:31] LABS: CREATININE 0.75 mg/dL (0.55-1.02)
[2019-12-08] MEDS: INSULIN LISPRO 100 UNITS/ML, PEN SQ-INSULIN SCH ×4 (06:35→20:57)
[2019-12-08 08:00] VITALS: BP 129/90
[2019-12-08] MEDS: DOCUSATE 100 MG CAPSULE PO SCH ×2 (08:14→20:57)
[2019-12-08] MEDS: AMLODIPINE 5 MG TABLET PO SCH ×2 (08:15→20:57)
[2019-12-08] MEDS: LISINOPRIL 40 MG TABLET PO SCH (08:15)
[2019-12-08] MEDS: LINEZOLID 600 MG TABLET PO SCH ×2 (08:15→20:57)
[2019-12-08] MEDS: FERROUS SULFATE 325 MG TABLET PO SCH ×2 (08:15→20:57)
[2019-12-08 14:00] VITALS: BP 133/71
[2019-12-08 20:54] VITALS: BP 128/84
[2019-12-08] MEDS: NICOTINE 7 MG/24 HR PATCH.TD24 TD SCH (20:57)
[2019-12-09] MEDS: ACETAMINOPHEN 325 MG TABLET PO SCH ×4 (00:58→18:25)
[2019-12-09] MEDS: IBUPROFEN 600 MG TABLET PO SCH ×4 (00:58→18:25)
[2019-12-09] MEDS: ENOXAPARIN 40 MG/0.4 ML SQ SCH (00:58)
[2019-12-09 01:00] VITALS: BP 123/80
[2019-12-09] MEDS: OXYcodone IR 5MG TABLET PO PRN ×2 (04:34→11:11)
[2019-12-09] MEDS: SODIUM CHLORIDE 0.9% 1,000 ML IV SCH ×2 (04:36→18:25)
[2019-12-09] MEDS: INSULIN LISPRO 100 UNITS/ML, PEN SQ-INSULIN SCH ×4 (07:00→20:34)
[2019-12-09] MEDS: DOCUSATE 100 MG CAPSULE PO SCH ×2 (07:59→20:33)
[2019-12-09] MEDS: LINEZOLID 600 MG TABLET PO SCH ×2 (08:00→20:33)
[2019-12-09] MEDS: FERROUS SULFATE 325 MG TABLET PO SCH ×2 (08:00→20:33)
[2019-12-09] MEDS: AMLODIPINE 5 MG TABLET PO SCH ×2 (08:00→20:33)
[2019-12-09] MEDS: LISINOPRIL 40 MG TABLET PO SCH (08:00)
[2019-12-09 08:07] VITALS: BP 122/79
[2019-12-09 13:23] VITALS: BP 124/75
[2019-12-09 20:17] VITALS: BP 145/84
[2019-12-09] MEDS: NICOTINE 7 MG/24 HR PATCH.TD24 TD SCH (20:34)
[2019-12-10] MEDS: IBUPROFEN 600 MG TABLET PO SCH ×5 (00:30→20:13)
[2019-12-10] MEDS: ACETAMINOPHEN 325 MG TABLET PO SCH ×5 (01:07→20:13)
[2019-12-10] MEDS: ENOXAPARIN 40 MG/0.4 ML SQ SCH (01:07)
[2019-12-10 01:52] VITALS: BP 145/79
[2019-12-10] MEDS: INSULIN LISPRO 100 UNITS/ML, PEN SQ-INSULIN SCH ×4 (06:38→20:14)
[2019-12-10 07:02] VITALS: BP 148/89
[2019-12-10] MEDS: SODIUM CHLORIDE 0.9% 1,000 ML IV SCH ×2 (07:55→21:15)
[2019-12-10] MEDS: LISINOPRIL 40 MG TABLET PO SCH (08:25)
[2019-12-10] MEDS: DOCUSATE 100 MG CAPSULE PO SCH ×2 (08:25→20:13)
[2019-12-10] MEDS: LINEZOLID 600 MG TABLET PO SCH ×2 (08:25→20:13)
[2019-12-10] MEDS: AMLODIPINE 5 MG TABLET PO SCH ×2 (08:25→20:13)
[2019-12-10] MEDS: FERROUS SULFATE 325 MG TABLET PO SCH ×2 (08:25→20:13)
[2019-12-10] MEDS: MORPHINE SULFATE 4 MG/ML, 1ML IV PRN ×2 (08:54→20:14)
[2019-12-10] MEDS: OXYcodone IR 5MG TABLET PO PRN ×2 (12:17→16:29)
[2019-12-10 14:00] VITALS: BP 144/72
[2019-12-10 16:36] VITALS: BP 144/72
[2019-12-10 20:00] VITALS: BP 133/74
[2019-12-10] MEDS: NICOTINE 7 MG/24 HR PATCH.TD24 TD SCH (20:20)
[2019-12-11] MEDS: ENOXAPARIN 40 MG/0.4 ML SQ SCH (00:33)
[2019-12-11] MEDS: IBUPROFEN 600 MG TABLET PO SCH ×2 (02:46→08:20)
[2019-12-11] MEDS: ACETAMINOPHEN 325 MG TABLET PO SCH ×2 (02:46→08:20)
[2019-12-11 03:21] VITALS: BP 146/80
[2019-12-11] MEDS: INSULIN LISPRO 100 UNITS/ML, PEN SQ-INSULIN SCH ×2 (07:00→11:00)
[2019-12-11 07:01] VITALS: BP 145/84
[2019-12-11] MEDS: SODIUM CHLORIDE 0.9% 1,000 ML IV SCH (08:14)
[2019-12-11] MEDS: AMLODIPINE 5 MG TABLET PO SCH (08:20)
[2019-12-11] MEDS: DOCUSATE 100 MG CAPSULE PO SCH (08:20)
[2019-12-11] MEDS: LISINOPRIL 40 MG TABLET PO SCH (08:20)
[2019-12-11] MEDS: FERROUS SULFATE 325 MG TABLET PO SCH (08:20)
[2019-12-11] MEDS: LINEZOLID 600 MG TABLET PO SCH (08:20)
[2019-12-11] MEDS: LACTULOSE 20 GM/30 ML UDC PO PRN (09:14)
[2019-12-11 14:05] VITALS: BP 154/88
[2019-12-11] MEDS ORDERED: LINE600T12 PO (14:29)
[2019-12-11] MEDS ORDERED: AMLO-150 PO (14:30)
== END 2019-12-11 15:00 | disposition home or self-care (01) | DRG 856 ==
LOC: ED 22:38 → EDIP 23:17 → 3WST 11-25 00:19 → 4NE 12-03 09:05 → 4EST 12-04 10:29
PROVIDERS: ADMIT Student in an Organized Health Care Education/Training Program; ATTEND Family Medicine
PROC: 2W53X6Z Removal of Pressure Dressing on Abdominal Wall (ICD-10-PCS; 2019-11-26)
PROC: 2W13X6Z Compression of Abdominal Wall using Pressure Dressing (ICD-10-PCS; 2019-11-26)
PROC: 0JDC0ZZ Extraction of Pelvic Region Subcutaneous Tissue and Fascia, Open Approach (ICD-10-PCS; principal; 2019-11-26 12:00)
DX: T81.41XA Infection following a procedure, superficial incisional surgical site, initial encounter (principal); A41.9 Sepsis, unspecified organism; T81.32XA Disruption of internal operation (surgical) wound, not elsewhere classified, initial encounter; D62 Acute posthemorrhagic anemia; K56.7 Ileus, unspecified; K91.89 Other postprocedural complications and disorders of digestive system; L02.211 Cutaneous abscess of abdominal wall; N17.9 Acute kidney failure, unspecified; D25.9 Leiomyoma of uterus, unspecified; E11.9 Type 2 diabetes mellitus without complications; E66.01 Morbid (severe) obesity due to excess calories; E87.6 Hypokalemia; F17.210 Nicotine dependence, cigarettes, uncomplicated; I10 Essential (primary) hypertension; Y83.9 Surgical procedure, unspecified as the cause of abnormal reaction of the patient, or of later complication, without mention of misadventure at the time of the procedure; Z79.84 Long term (current) use of oral hypoglycemic drugs; Z83.3 Family history of diabetes mellitus; Z88.0 Allergy status to penicillin; Z79.899 Other long term (current) drug therapy; Z90.710 Acquired absence of both cervix and uterus; Z11.59 Encounter for screening for other viral diseases; Z88.8 Allergy status to other drugs, medicaments and biological substances; Z68.32 Body mass index [BMI] 32.0-32.9, adult
CPT/HCPCS: 36415; 74177; 80048; 80053; 82962; 83605; 84145; 85025; 85651; 86140; 86850; 86900; 87040; 87070; 87075; 87076; 87077; 87186; 87205; 96361; 96374; 96375; 97162; 99291; G0378; J0690; J1100; J1170; J1335; J1650; J1885; J2020; J2405; J2704; J2710; J3010; J3480; Q9967; J0330; J0360; J1815; J2270; J7030; J7040; U0001-CS

== ENCOUNTER 2019-12-13 14:01 | Emergency (ER) | payer OTHER ==
[~2019-12-13] VITALS: Ht 177.8 cm; Wt 99.8 kg
[~2019-12-13 14:01] MED LIST changes: +AMLO-150 PO; +LINE600T12 PO
[2019-12-13 14:12] VITALS: BP 162/96
--- NOTE | 2019-12-13 15:15 | NUR ---
WOUND CARE AT BEDSIDE.
== END 2019-12-13 16:59 | disposition home or self-care (01) ==
LOC: ED 16:29
DX: R10.9 Unspecified abdominal pain (principal); I10 Essential (primary) hypertension; E11.9 Type 2 diabetes mellitus without complications; Z48.01 Encounter for change or removal of surgical wound dressing
CPT/HCPCS: 99281

== ENCOUNTER 2019-12-17 08:20 | Outpatient (CLI) | payer OTHER | END 2019-12-17 23:59 | disposition home or self-care (01) | LOC: WOUND 08:20 | PROVIDERS: ATTEND Internal Medicine | DX: T81.32XD Disruption of internal operation (surgical) wound, not elsewhere classified, subsequent encounter (principal); S31.105D Unspecified open wound of abdominal wall, periumbilic region without penetration into peritoneal cavity, subsequent encounter; L76.32 Postprocedural hematoma of skin and subcutaneous tissue following other procedure; I10 Essential (primary) hypertension; E66.01 Morbid (severe) obesity due to excess calories; F17.210 Nicotine dependence, cigarettes, uncomplicated; Z90.710 Acquired absence of both cervix and uterus; Z88.8 Allergy status to other drugs, medicaments and biological substances; Z88.0 Allergy status to penicillin; Z79.84 Long term (current) use of oral hypoglycemic drugs; Z79.899 Other long term (current) drug therapy; X58.XXXD Exposure to other specified factors, subsequent encounter; Y83.8 Other surgical procedures as the cause of abnormal reaction of the patient, or of later complication, without mention of misadventure at the time of the procedure | CPT/HCPCS: 97605 ==

== ENCOUNTER → 2019-12-19 | Outpatient (CLI) | payer OTHER | END | disposition home or self-care (01) | LOC: WOUND 14:02 | PROVIDERS: ATTEND Internal Medicine | DX: T81.32XD Disruption of internal operation (surgical) wound, not elsewhere classified, subsequent encounter (principal); S31.105D Unspecified open wound of abdominal wall, periumbilic region without penetration into peritoneal cavity, subsequent encounter; L76.32 Postprocedural hematoma of skin and subcutaneous tissue following other procedure; I10 Essential (primary) hypertension; E66.01 Morbid (severe) obesity due to excess calories; F17.210 Nicotine dependence, cigarettes, uncomplicated; Z90.710 Acquired absence of both cervix and uterus; Z88.8 Allergy status to other drugs, medicaments and biological substances; Z88.0 Allergy status to penicillin; Z79.84 Long term (current) use of oral hypoglycemic drugs; Z79.899 Other long term (current) drug therapy; X58.XXXD Exposure to other specified factors, subsequent encounter; Y83.8 Other surgical procedures as the cause of abnormal reaction of the patient, or of later complication, without mention of misadventure at the time of the procedure | CPT/HCPCS: 97605 ==

== ENCOUNTER → 2019-12-21 | Outpatient (CLI) | payer OTHER | END | disposition home or self-care (01) | LOC: WOUND 10:14 | PROVIDERS: ATTEND Internal Medicine Cardiovascular Disease | DX: T81.32XD Disruption of internal operation (surgical) wound, not elsewhere classified, subsequent encounter (principal); S31.105D Unspecified open wound of abdominal wall, periumbilic region without penetration into peritoneal cavity, subsequent encounter; L76.32 Postprocedural hematoma of skin and subcutaneous tissue following other procedure; I10 Essential (primary) hypertension; E66.01 Morbid (severe) obesity due to excess calories; F17.210 Nicotine dependence, cigarettes, uncomplicated; Z90.710 Acquired absence of both cervix and uterus; Z88.8 Allergy status to other drugs, medicaments and biological substances; Z88.0 Allergy status to penicillin; Z79.84 Long term (current) use of oral hypoglycemic drugs; Z79.899 Other long term (current) drug therapy; X58.XXXD Exposure to other specified factors, subsequent encounter; Y83.8 Other surgical procedures as the cause of abnormal reaction of the patient, or of later complication, without mention of misadventure at the time of the procedure | CPT/HCPCS: 97605 ==

== ENCOUNTER 2019-12-24 10:51 | Outpatient (CLI) | payer OTHER | END 2019-12-24 23:59 | disposition home or self-care (01) | LOC: WOUND 10:51 | PROVIDERS: ATTEND Internal Medicine | DX: T81.32XD Disruption of internal operation (surgical) wound, not elsewhere classified, subsequent encounter (principal); S31.105D Unspecified open wound of abdominal wall, periumbilic region without penetration into peritoneal cavity, subsequent encounter; L76.32 Postprocedural hematoma of skin and subcutaneous tissue following other procedure; I10 Essential (primary) hypertension; E66.01 Morbid (severe) obesity due to excess calories; F17.210 Nicotine dependence, cigarettes, uncomplicated; Z90.710 Acquired absence of both cervix and uterus; Z88.8 Allergy status to other drugs, medicaments and biological substances; Z88.0 Allergy status to penicillin; Z79.84 Long term (current) use of oral hypoglycemic drugs; Z79.899 Other long term (current) drug therapy; X58.XXXD Exposure to other specified factors, subsequent encounter; Y83.8 Other surgical procedures as the cause of abnormal reaction of the patient, or of later complication, without mention of misadventure at the time of the procedure | CPT/HCPCS: 97605 ==

== ENCOUNTER 2019-12-26 09:12 | Outpatient (CLI) | payer OTHER | END 2019-12-26 23:59 | disposition home or self-care (01) | LOC: WOUND 09:12 | PROVIDERS: ATTEND Internal Medicine | DX: T81.32XD Disruption of internal operation (surgical) wound, not elsewhere classified, subsequent encounter (principal); L76.32 Postprocedural hematoma of skin and subcutaneous tissue following other procedure; E11.9 Type 2 diabetes mellitus without complications; I10 Essential (primary) hypertension; E66.01 Morbid (severe) obesity due to excess calories; F17.210 Nicotine dependence, cigarettes, uncomplicated; Z68.32 Body mass index [BMI] 32.0-32.9, adult; Z90.710 Acquired absence of both cervix and uterus; Z90.49 Acquired absence of other specified parts of digestive tract; Z88.8 Allergy status to other drugs, medicaments and biological substances; Z88.0 Allergy status to penicillin; Z79.84 Long term (current) use of oral hypoglycemic drugs; Z79.899 Other long term (current) drug therapy; Y83.8 Other surgical procedures as the cause of abnormal reaction of the patient, or of later complication, without mention of misadventure at the time of the procedure | CPT/HCPCS: 97605 ==

== ENCOUNTER 2019-12-28 07:47 | Outpatient (CLI) | payer OTHER | END 2019-12-28 23:59 | disposition home or self-care (01) | LOC: WOUND 07:47 | PROVIDERS: ATTEND Family Medicine | DX: T81.32XD Disruption of internal operation (surgical) wound, not elsewhere classified, subsequent encounter (principal); S31.105D Unspecified open wound of abdominal wall, periumbilic region without penetration into peritoneal cavity, subsequent encounter; L76.32 Postprocedural hematoma of skin and subcutaneous tissue following other procedure; E11.628 Type 2 diabetes mellitus with other skin complications; I10 Essential (primary) hypertension; E66.01 Morbid (severe) obesity due to excess calories; F17.210 Nicotine dependence, cigarettes, uncomplicated; Z90.49 Acquired absence of other specified parts of digestive tract; Z88.8 Allergy status to other drugs, medicaments and biological substances; Z88.0 Allergy status to penicillin; Z79.84 Long term (current) use of oral hypoglycemic drugs; Z79.899 Other long term (current) drug therapy; Z68.32 Body mass index [BMI] 32.0-32.9, adult; Z90.710 Acquired absence of both cervix and uterus; Y83.8 Other surgical procedures as the cause of abnormal reaction of the patient, or of later complication, without mention of misadventure at the time of the procedure; X58.XXXD Exposure to other specified factors, subsequent encounter | CPT/HCPCS: 11042; 11045; 97605 ==

== ENCOUNTER → 2019-12-31 | Outpatient (CLI) | payer OTHER | END | disposition home or self-care (01) | LOC: WOUND 10:45 | PROVIDERS: ATTEND Internal Medicine | DX: T81.32XD Disruption of internal operation (surgical) wound, not elsewhere classified, subsequent encounter (principal); L76.32 Postprocedural hematoma of skin and subcutaneous tissue following other procedure; E11.9 Type 2 diabetes mellitus without complications; I10 Essential (primary) hypertension; E66.01 Morbid (severe) obesity due to excess calories; F17.210 Nicotine dependence, cigarettes, uncomplicated; Z90.49 Acquired absence of other specified parts of digestive tract; Z88.8 Allergy status to other drugs, medicaments and biological substances; Z88.0 Allergy status to penicillin; Z79.84 Long term (current) use of oral hypoglycemic drugs; Z79.899 Other long term (current) drug therapy; Y83.8 Other surgical procedures as the cause of abnormal reaction of the patient, or of later complication, without mention of misadventure at the time of the procedure | CPT/HCPCS: 97605 ==

== ENCOUNTER → 2020-01-02 | Outpatient (CLI) | payer OTHER | END | disposition home or self-care (01) | LOC: WOUND 08:12 | PROVIDERS: ATTEND Internal Medicine | DX: T81.32XD Disruption of internal operation (surgical) wound, not elsewhere classified, subsequent encounter (principal); L76.32 Postprocedural hematoma of skin and subcutaneous tissue following other procedure; E11.9 Type 2 diabetes mellitus without complications; I10 Essential (primary) hypertension; E66.01 Morbid (severe) obesity due to excess calories; F17.210 Nicotine dependence, cigarettes, uncomplicated; Z90.49 Acquired absence of other specified parts of digestive tract; Z88.8 Allergy status to other drugs, medicaments and biological substances; Z88.0 Allergy status to penicillin; Z79.84 Long term (current) use of oral hypoglycemic drugs; Z79.899 Other long term (current) drug therapy; Z90.710 Acquired absence of both cervix and uterus; Z68.32 Body mass index [BMI] 32.0-32.9, adult; Y83.8 Other surgical procedures as the cause of abnormal reaction of the patient, or of later complication, without mention of misadventure at the time of the procedure | CPT/HCPCS: 99213 ==

== ENCOUNTER → 2020-01-09 | Outpatient (CLI) | payer OTHER | END | disposition home or self-care (01) | LOC: WOUND 08:38 | PROVIDERS: ATTEND Internal Medicine | DX: T81.32XD Disruption of internal operation (surgical) wound, not elsewhere classified, subsequent encounter (principal); L76.32 Postprocedural hematoma of skin and subcutaneous tissue following other procedure; E11.9 Type 2 diabetes mellitus without complications; I10 Essential (primary) hypertension; E66.01 Morbid (severe) obesity due to excess calories; F17.210 Nicotine dependence, cigarettes, uncomplicated; Z90.49 Acquired absence of other specified parts of digestive tract; Z90.710 Acquired absence of both cervix and uterus; Z88.8 Allergy status to other drugs, medicaments and biological substances; Z88.0 Allergy status to penicillin; Z79.84 Long term (current) use of oral hypoglycemic drugs; Z79.899 Other long term (current) drug therapy; Z68.32 Body mass index [BMI] 32.0-32.9, adult; Y83.8 Other surgical procedures as the cause of abnormal reaction of the patient, or of later complication, without mention of misadventure at the time of the procedure | CPT/HCPCS: 99213 ==

== ENCOUNTER 2020-01-14 09:37 | Outpatient (CLI) | payer OTHER | END 2020-01-14 23:59 | disposition home or self-care (01) | LOC: WOUND 09:37 | PROVIDERS: ATTEND Internal Medicine | DX: T81.32XD Disruption of internal operation (surgical) wound, not elsewhere classified, subsequent encounter (principal); L76.32 Postprocedural hematoma of skin and subcutaneous tissue following other procedure; E11.9 Type 2 diabetes mellitus without complications; I10 Essential (primary) hypertension; E66.01 Morbid (severe) obesity due to excess calories; F17.210 Nicotine dependence, cigarettes, uncomplicated; Z90.49 Acquired absence of other specified parts of digestive tract; Z90.710 Acquired absence of both cervix and uterus; Z88.8 Allergy status to other drugs, medicaments and biological substances; Z88.0 Allergy status to penicillin; Z79.84 Long term (current) use of oral hypoglycemic drugs; Z79.899 Other long term (current) drug therapy; Z68.32 Body mass index [BMI] 32.0-32.9, adult; Y83.8 Other surgical procedures as the cause of abnormal reaction of the patient, or of later complication, without mention of misadventure at the time of the procedure | CPT/HCPCS: 97597 ==

== ENCOUNTER → 2020-04-07 | Outpatient (CLI) | payer OTHER ==
[~2020-04-07] MED LIST changes: +OMNIPAQUE 350 MG/ML, 100ML BOTTLE ONE
== END | disposition home or self-care (01) ==
LOC: CFH 10:46
PROVIDERS: ATTEND Surgery
DX: N28.1 Cyst of kidney, acquired (principal); K43.2 Incisional hernia without obstruction or gangrene; I70.0 Atherosclerosis of aorta
CPT/HCPCS: 74177; 82565; Q9967